=== PATIENT | male | born 1975 | race African-American/Black ===

== ENCOUNTER 2016-05-15 14:05 | Emergency (ER) | payer MEDICARE, OTHER ==
[~2016-05-15] VITALS: Ht 180.3 cm; Wt 70.0 kg
[2016-05-15 14:07] VITALS: BP 134/82; PULSE 104; RESP 16; TEMP 98; O2SAT 98
[2016-05-15] MEDS ORDERED: IBUP800T23 PO (14:52)
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
[2016-05-15] MEDS ORDERED: IBUPROFEN 800 MG TAB PO ONE (15:00)
== END 2016-05-15 15:41 | disposition home or self-care (01) ==
LOC: NEPB 14:05
DX: M79.601 Pain in right arm (principal); W45.8XXD Other foreign body or object entering through skin, subsequent encounter
CPT/HCPCS: 99283

== ENCOUNTER 2016-07-01 10:43 | Emergency (ER) | payer MEDICARE, OTHER ==
[~2016-07-01 10:43] MED LIST: IBUP800T23 PO
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
[2016-07-01 11:16] VITALS: BP 113/58; PULSE 95; RESP 16; O2SAT 97
[2016-07-01 11:31] LABS: AUTOMATED NEUTROPHIL # 3.2 TH/MM3 (1.8-7.7); BASOPHIL % 0.6 % (0.0-2.0); EOSINOPHIL # 0.2 TH/MM3 (0-0.4); HEMATOCRIT 42.3 % (39.0-51.0); HEMO FLAGS DIFF FINAL; LYMPH % 25.9 % (9.0-44.0); LYMPHOCYTE # 1.3 TH/MM3 (1.0-4.8); MEAN CELL VOLUME 96.6 FL (80.0-100.0); MEAN CORPUSCULAR HEMOGLOBIN 32.1 PG (27.0-34.0); MEAN CORPUSCULAR HGB CONC 33.2 % (32.0-36.0); MONO % 8.2 % (0.0-8.0); NEUT % 62.3 % (16.0-70.0); PLATELET COUNT 230 TH/MM3 (150-450); RED BLOOD COUNT 4.38 MIL/MM3 (4.50-5.90); RED CELL DISTRIBUTION WIDTH 12.9 % (11.6-17.2); WHITE BLOOD COUNT 5.1 TH/MM3 (4.0-11.0)
[2016-07-01 11:38] LABS: AMPHETAMINE, URINE NEG (NEG); BARBITURATES, URINE NEG (NEG); COCAINE, URINE POS (NEG)
[2016-07-01 11:55] LABS: ALT (GPT) 29 U/L (12-78); ANION GAP 7 MEQ/L (5-15); AST (GOT) 25 U/L (15-37); BICARBONATE 25.6 MEQ/L (21.0-32.0); BLOOD UREA NITROGEN 11 MG/DL (7-18); CHLORIDE 108 MEQ/L (98-107); GLOMERULAR FILTRATION RATE 96 ML/MIN (>89); POTASSIUM 3.9 MEQ/L (3.5-5.1); SODIUM (NA) 141 MEQ/L (136-145)
[2016-07-01 11:57] LABS: ALKALINE PHOSPHATASE 54 U/L (45-117); TOTAL BILIRUBIN ADULT 0.2 MG/DL (0.2-1.0)
[2016-07-01] MEDS ORDERED: DIPH25CA PO (12:06)
[2016-07-01] MEDS ORDERED: GABA300C5 PO (12:06)
[2016-07-01] MEDS ORDERED: BENZ1TAB PO (12:06)
[2016-07-01] MEDS ORDERED: BUSP15TA PO (12:06)
[2016-07-01] MEDS ORDERED: MOBI7.5T PO (12:06)
[2016-07-01] MEDS ORDERED: ZIPR40 PO (12:06)
[2016-07-01] MEDS ORDERED: ACYC400T PO (12:06)
[2016-07-01 14:00] VITALS: BP 120/66; PULSE 65; RESP 18; TEMP 98.8; O2SAT 96
[2016-07-01 17:30] VITALS: PULSE 74; RESP 18
--- NOTE | 2016-07-01 17:53 | PD ---
History of Present Illness Chief Complaint: Psychiatric Symptoms Time Seen by Provider: 17:15 Travel History International Travel<30 Days: No Contact w/Intl Traveler<30days: No Known affected area: No Legal Status Legal Status: Oneill Act Oneill Act Signed By: Marquise Oneill Act Comment: HARSH YEOMAN History of Present Illness: History of Present Illness HPI 40-year-old Afro-[place] male with a reported history of schizophrenia and substance abuse who is brought in under Oneill act for suicidal ideation. The BA was initiated by APRIL and as per the report he stated to the police that he wanted to kill himself by either stepping into traffic or overdosing on drugs. He reports that his last medications were Zyprexa and buspirone and are prescribed by [facility]. EMR is reviewed and he has not had any previous contact with [facility]. His current toxicology is positive for cocaine. Patient is seen in J pod. Awake,alert and oriented x 3 . He is anxious . His speech s clear and logical, goal directed, normal tone and rate. There is no pressure. He does not appear to be responding to internal stimuli and he denies hallucinatory process. No paranoia although her voices suspiciousness about people's motives. This is probably more as a result of his current social environment. He reports feeling anxious as well as sad. He denies suicidal or homicidal ideation, intent or plan. In terms of current events leading to BA he reports that he contacted his child welfare caseworker at [facility] and told her he was feeling unhappy. She recommended he call the police for a well being check. He called the police and requested to voluntarily oneill act himself . His intention was to be able to get into a sober living home but is unable to do so until he can provide a clean urine. He tells me that he called several different places and was told the above information. He believed that he could remain here until he could provide a clean urine sample. PFSH Past Medical History Diminished Hearing: No Psychiatric History Psychiatric History Hx Psychiatric Treatment: SCHIZOPHRENIA History of Inpatient Treatment: Yes ([facility]) Guns or firearms in home: No Social History Single male. On disability but also works as a day electroplating laborer. Was staying with a friend who kicked him out yesterday. Has family in the area. Hx Alcohol Use: Yes Hx Tobacco Use: Yes Hx Substance Use: Yes (COCAINE 1/2 GRAM DAILY, 16 OZ. BEER DAILY) Substance Use Type: Nicotine/Cigarettes, Heroin, Cocaine Other Substances Used: VOICES HE TRIED HEROIN FOR THE FIRST TIME 2 DAYS AGO Hx of Substance Use Treatment: Yes Family Psychiatric History None reported Allergies-Medications (Allergen,Severity, Reaction): Coded Allergies: UNOBTAINABLE (Unverified , 03/11/16) TRAUMA PATIENT Reported Meds & Prescriptions Reported Meds & Active Scripts Active Ibuprofen 800 Mg Tab 800 Mg PO Q6HR PRN Reported Mobic (Meloxicam) 7.5 Mg Tab 7.5 Mg PO DAILY Acyclovir 400 Mg Tab 400 Mg PO QID Gabapentin 300 Mg Cap 300 Mg PO BID Geodon (Ziprasidone) 40 Mg Cap 40 Mg PO BID Buspirone (Buspirone HCl) 15 Mg Tab 15 Mg PO TID Benztropine (Benztropine Mesylate) 1 Mg Tab 1 Mg PO BID Diphenhydramine (Diphenhydramine HCl) 25 Mg Cap 25 Mg PO HS Review of Systems Except as stated in HPI: all other systems reviewed are Neg Psychiatric: COMPLAINS OF: Depression Exam Alert: Yes [place]: Person (ox4) Mood: Anxious (wanst to be discharged) Affect: Euthymic Speech: Clear, Logical Eye Contact: Normal Memory Intact: Immediate (no impairmetn) Hallucinations: Other (denies at present) Delusions: No Suicidal: Ideation (denies at present) Homicidal: Ideation (deneis at present) Insight/Judgement poor. not impaired. MDM Medical Decision Making Medical Record Reviewed: Yes Assessment/Plan 40 year old male under a BA after he called the police for a wellness check on his own behalf. After discussion with the patient it appears that he was advised by his employer that he could not return to work until he had drug treatment. He then was kicked out of his friend's house. He made attempts at getting into a sober living home but was told he needed to provide a clean urine before he could be admitted. Patient a t this time is denying any suicidal ideation, he is future oriented and has definite plans to enter a sober living home He is recommended to contact [facility] detox on his own in the morning. At this time he does not meet BA criteria and will be discharged from ed. Orders Complete Blood Count With Diff (07/01/16 11:00) Comprehensive Metabolic Panel (07/01/16 11:00) Psych Screen (07/01/16 11:00) Drug Screen, Random Urine (07/01/16 11:00) Diet Regular Basic (07/01/16 Dinner) Results Vital Signs Date Time Temp Pulse Resp B/P Pulse Ox O2 Delivery O2 Flow Rate FiO2 07/01/16 14:00 98.8 65 18 120/66 96 Room Air 07/01/16 11:16 95 16 113/58 97 Room Air 07/01/16 11:14 16 Laboratory Tests Test 07/01/16 11:15 White Blood Count 5.1 Red Blood Count 4.38 Hemoglobin 14.0 Hematocrit 42.3 Mean Corpuscular Volume 96.6 Mean Corpuscular Hemoglobin 32.1 Mean Corpuscular Hemoglobin 33.2 Concent Red Cell Distribution Width 12.9 Platelet Count 230 Mean Platelet Volume 7.0 Neutrophils (%) (Auto) 62.3 Lymphocytes (%) (Auto) 25.9 Monocytes (%) (Auto) 8.2 Eosinophils (%) (Auto) 3.0 Basophils (%) (Auto) 0.6 Neutrophils # (Auto) 3.2 Lymphocytes # (Auto) 1.3 Monocytes # (Auto) 0.4 Eosinophils # (Auto) 0.2 Basophils # (Auto) 0.0 CBC Comment DIFF FINAL Differential Comment Sodium Level 141 Potassium Level 3.9 Chloride Level 108 Carbon Dioxide Level 25.6 Anion Gap 7 Blood Urea Nitrogen 11 Creatinine 1.05 Estimat Glomerular Filtration 96 Rate Random Glucose 108 Calcium Level 8.4 Total Bilirubin 0.2 Aspartate Amino Transf 25 (AST/SGOT) Alanine Aminotransferase 29 (ALT/SGPT) Alkaline Phosphatase 54 Total Protein 7.2 Albumin 3.5 Urine Opiates Screen NEG Urine Barbiturates Screen NEG Urine Amphetamines Screen NEG Urine Benzodiazepines Screen NEG Urine Cocaine Screen POS Urine Cannabinoids Screen NEG Diagnosis Primary Impression: Substance induced mood disorder Additional Impressions: Substance abuse Schizophrenia Ruled Out: Suicidal ideation Psychiatrically Cleared: Yes Med/ Other Pt Specific Info: No Change to Meds Disposition: 01 DISCHARGE HOME Condition: Stable Problem Qualifiers Additional Impressions: Schizophrenia Qualified Code: F20.0 - Paranoid schizophrenia Carley Hanna Jul 01, 2016 17:53
== END 2016-07-01 19:00 | disposition home or self-care (01) ==
LOC: NEPE 10:43 → NEPJ 19:00
DX: F20.9 Schizophrenia, unspecified (principal); R45.851 Suicidal ideations; F14.20 Cocaine dependence, uncomplicated; Z72.0 Tobacco use
CPT/HCPCS: 80053; 80307; 85025; 99283

== ENCOUNTER 2016-11-09 06:10 | Emergency (ER) | payer MEDICARE, OTHER ==
[~2016-11-09] VITALS: Ht 180.3 cm; Wt 76.0 kg
[~2016-11-09 06:10] MED LIST changes: +ACYC400T PO; +BENZ1TAB PO; +BUSP15TA PO; +DIPH25CA PO; +GABA300C5 PO; +MOBI7.5T PO; +ZIPR40 PO
[2016-11-09 06:12] VITALS: BP 125/85; PULSE 86; RESP 18; TEMP 97.9; O2SAT 97
[2016-11-09] MEDS ORDERED: BENZ0.5T PO (06:31)
[2016-11-09] MEDS ORDERED: BENZTROPINE MESYLATE 1 MG TAB PO ONE (07:00)
--- NOTE | 2016-11-09 07:06 | PD ---
HPI Chief Complaint: Dizziness Time Seen by Provider: 06:59 Travel History International Travel<30 days: No Contact w/Intl Traveler<30days: No Traveled to known affect area: No History of Present Illness HPI 41 male with history of schizophrenia, presents today with points of dizziness. The patient states he took his she had done however did not take his benztropine because he was out of his prescription. He states he has a prescription he is just not been able to make it to the pharmacy. The patient has no fevers, chills. He has no headache. He states that when he does not take his benztropine he gets dizzy. There are no other complaints time my examination. PFSH Past Medical History Anxiety: Yes Diminished Hearing: No Schizophrenia: Yes Past Surgical History Other Surgery: Yes (JAW/ HEMMHOROIDS) Social History Alcohol Use: No (DENIES) Tobacco Use: Yes (1 PPD) Substance Use: Yes (COCAINE 1/2 GRAM DAILY, 16 OZ. BEER DAILY/ DENIES) Allergies-Medications (Allergen,Severity, Reaction): Coded Allergies: No Known Allergies (Unverified , 11/09/16) Reported Meds & Prescriptions Reported Meds & Active Scripts Active Ibuprofen 800 Mg Tab 800 Mg PO Q6HR PRN Reported Benztropine (Benztropine Mesylate) 0.5 Mg Tab 1 Mg PO BID Mobic (Meloxicam) 7.5 Mg Tab 7.5 Mg PO DAILY Acyclovir 400 Mg Tab 400 Mg PO QID Gabapentin 300 Mg Cap 300 Mg PO BID Geodon (Ziprasidone) 40 Mg Cap 40 Mg PO BID Buspirone (Buspirone HCl) 15 Mg Tab 15 Mg PO TID Diphenhydramine (Diphenhydramine HCl) 25 Mg Cap 25 Mg PO HS Review of Systems Except as stated in HPI: all other systems reviewed are Neg General / Constitutional: No: Fever, Chills HENT: No: Headaches, Neck Pain Cardiovascular: No: Chest Pain or Discomfort, Irregular Rhythm Respiratory: No: Cough, Shortness of Breath Gastrointestinal: No: Nausea, Vomiting, Abdominal Pain Musculoskeletal: No: Weakness, Pain Neurologic: Positive: Dizziness, No: Headache, Change in Mentation Physical Exam Narrative GENERAL: Well-nourished, well-developed patient, in no acute respiratory distress. SKIN: Focused skin assessment warm/dry. HEAD: Normocephalic/atraumatic. EYES: No scleral icterus. No injection or drainage. NECK: Supple, trachea midline. No JVD or lymphadenopathy. CARDIOVASCULAR: Regular rate and rhythm without murmurs, gallops, or rubs. RESPIRATORY: Breath sounds equal bilaterally. No accessory muscle use. GASTROINTESTINAL: Abdomen soft, non-tender, nondistended. MUSCULOSKELETAL: No cyanosis, or edema. NEUROLOGICAL: Awake and alert. Cranial nerves II through XII intact. Motor and sensory grossly within normal limits. Five out of 5 muscle strength in all muscle groups. Normal speech. Subjective dizziness. Normal Gait is observed. Data Data Last Documented VS Vital Signs Date Time Temp Pulse Resp B/P Pulse Ox O2 Delivery O2 Flow Rate FiO2 11/09/16 06:12 97.9 86 18 125/85 97 Room Air Orders Benztropine (Cogentin) (11/09/16 07:00) [facility] Medical Decision Making Medical Screen Exam Complete: Yes Emergency Medical Condition: Yes Differential Diagnosis Medication reaction versus dehydration versus metabolic derangement Narrative Course 41 year-old gentleman history of schizophrenia, presents here with complaints of dizziness. The patient states he took his Geodon however did not take his benztropine. The patient states he has a prescription however has not filled it as of yet. Patient was given benztropine. He is now feeling much improved and is not dizzy. He's been instructed to fill his prescription. He states he' s can have better now after being discharged to get up filled. Diagnosis Primary Impression: dizziness resolved. Additional Impression: Medication reaction Additional Instructions: Please fill your prescription. Return as needed. Disposition: 01 DISCHARGE HOME Condition: Stable Ashish Diez MD Nov 09, 2016 07:05
== END 2016-11-09 11:07 | disposition home or self-care (01) ==
LOC: NEPE 06:10
DX: R42 Dizziness and giddiness (principal); F20.9 Schizophrenia, unspecified; F41.9 Anxiety disorder, unspecified; F17.200 Nicotine dependence, unspecified, uncomplicated; Z79.899 Other long term (current) drug therapy
CPT/HCPCS: 99283

== ENCOUNTER 2016-11-16 01:22 | Emergency (ER) | payer MEDICARE, OTHER ==
[~2016-11-16] VITALS: Ht 180.3 cm; Wt 75.0 kg
[~2016-11-16 01:22] MED LIST changes: +BENZ0.5T PO; -BENZ1TAB PO
[2016-11-16 01:26] VITALS: BP 115/71; PULSE 91; RESP 18; TEMP 98; O2SAT 97
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
[2016-11-16] MEDS ORDERED: IBUPROFEN 600 MG TAB PO ONE (02:15)
[2016-11-16] MEDS ORDERED: CYCLOBENZAPRINE HCL 10 MG TAB PO ONE (02:15)
[2016-11-16 03:53] LABS: ALT (GPT) 29 U/L (12-78); AST (GOT) 16 U/L (15-37); BLOOD UREA NITROGEN 23 MG/DL (7-18); CHLORIDE 104 MEQ/L (98-107); GLOMERULAR FILTRATION RATE 84 ML/MIN (>89); MAGNESIUM 2.2 MG/DL (1.5-2.5); POTASSIUM 3.4 MEQ/L (3.5-5.1); SODIUM (NA) 139 MEQ/L (136-145)
[2016-11-16 03:55] LABS: ALKALINE PHOSPHATASE 48 U/L (45-117); TOTAL BILIRUBIN ADULT 0.5 MG/DL (0.2-1.0)
[2016-11-16 03:57] LABS: AUTOMATED NEUTROPHIL # 3.6 TH/MM3 (1.8-7.7); BASOPHIL % 0.3 % (0.0-2.0); EOSINOPHIL # 0.1 TH/MM3 (0-0.4); EOSINOPHIL % 1.8 % (0.0-4.0); HEMO FLAGS DIFF FINAL; LYMPH % 31.1 % (9.0-44.0); LYMPHOCYTE # 1.9 TH/MM3 (1.0-4.8); MEAN CELL VOLUME 96.5 FL (80.0-100.0); MEAN CORPUSCULAR HEMOGLOBIN 32.5 PG (27.0-34.0); MEAN CORPUSCULAR HGB CONC 33.6 % (32.0-36.0); MONO % 8.4 % (0.0-8.0); NEUT % 58.4 % (16.0-70.0); PLATELET COUNT 237 TH/MM3 (150-450); RED BLOOD COUNT 4.55 MIL/MM3 (4.50-5.90); WHITE BLOOD COUNT 6.1 TH/MM3 (4.0-11.0)
[2016-11-16 04:04] LABS: ANION GAP 10 MEQ/L (5-15); BICARBONATE 24.8 MEQ/L (21.0-32.0)
== END 2016-11-16 02:30 | disposition left against medical advice (07) ==
LOC: NEPD 01:22
DX: Z59.0 Homelessness (principal); Z53.21 Procedure and treatment not carried out due to patient leaving prior to being seen by health care provider
CPT/HCPCS: 80053; 80307; 83735; 85025; 99283